=== PATIENT | female | born 1985 | race Caucasian/White ===

== ENCOUNTER → 2023-07-21 | Emergency (ER) | payer OTHER, MEDICAID ==
[~2023-07-21] VITALS: Ht 160 cm; Wt 138.5 kg
[~2023-07-21] MED LIST: ketorolac trometh inj. 60 MG/2 ML VIAL IM ONE
[2023-07-21 16:36] VITALS: BP 142/94; PULSE 100; RESP 16; TEMP 98; O2SAT 95
== END | disposition home or self-care (01) ==
LOC: ER 14:47
DX: M54.2 Cervicalgia (principal); Z88.5 Allergy status to narcotic agent; Z79.899 Other long term (current) drug therapy
CPT/HCPCS: 96372; 99283; J1885

== ENCOUNTER 2023-12-07 09:19 | Outpatient (CLI) | payer MEDICAID | END 2023-12-07 23:59 | disposition home or self-care (01) | LOC: RAD 09:19 | PROVIDERS: ATTEND Family Medicine | DX: M79.671 Pain in right foot (principal) | CPT/HCPCS: 73610; 73630 ==